=== PATIENT | male | born 1990 | race Hispanic/Latino ===

== ENCOUNTER 2019-01-21 11:45 | Emergency (ER) | payer SELFPAY ==
[2019-01-21] MEDS ORDERED: CEFTRIAXONE SODIUM 1 GM ONE (13:23)
[2019-01-21] MEDS ORDERED: HYDROCODONE/ACETAMINOPHEN 10/325 MG TAB ONE (13:24)
[2019-01-21] MEDS ORDERED: TETANUS/DIPHTHERIA TOXOID [ADULT] 0.5 ML VIAL IM ONE (13:24)
[2019-01-21] MEDS ORDERED: LIDOCAINE HCL-MPF 1% 2ML VIAL ONE (13:27)
[2019-01-21] MEDS ORDERED: LIDOCAINE HCL 1% 20 ML VIAL ONE (13:48)
== END 2019-01-21 15:09 | disposition home or self-care (01) ==
LOC: EDH 11:45
DX: S81.812A Laceration without foreign body, left lower leg, initial encounter (principal); W32.0XXA Accidental handgun discharge, initial encounter; Y93.89 Activity, other specified; Y92.89 Other specified places as the place of occurrence of the external cause; Y99.8 Other external cause status
CPT/HCPCS: 12032; 73590; 90471; 90714; 96372; 99284; J0696; J3490; 12042